=== PATIENT | male | born 1985 | race Caucasian/White ===

== ENCOUNTER 2016-06-26 13:12 | Emergency (ER) | payer OTHER ==
--- NOTE | 2016-07-15 08:14 | ER ---
ADMIT: 06/26/2016 RM/LOC: ER [facility] MR#: [id number] [place], [place] [id number] CRISTINA FARNSWORTH [address] [place] [id number] Emergency Room Report SEX: M AGE: 30 : 1985 DATE: 06/26/2016 ADDENDUM: This patient comes into the ER because 2 weeks ago, he was kicked by a cow in his zimmer. However, in the last few days, he has noticed redness on the medial aspect of his left leg right below his knee, and it is painful and red. Denies any recent injury except for the 2 weeks ago. On physical exam, he does have cellulitis in the left lower leg. Pulses are equal bilaterally. It is not in the calf, and he has no pain in the calf or the back of his leg. DIAGNOSIS: Cellulitis to the left leg. DISPOSITION: I wrote a prescription for Keflex and Bactrim. He is to follow up with his doctor if it increases in size. Please see my T-sheet. AMANDA Burk / Toro Balderas MD / floresl JOB #: [id number] CC: Toro Balderas MD, Attending Physician Bo Bower MD, Family Physician
== END 2016-06-26 13:45 | disposition home or self-care (01) ==
LOC: ER 13:12
DX: L03.116 Cellulitis of left lower limb (principal)